=== PATIENT | female | born 1950 | race Two or more races ===

== ENCOUNTER 2016-09-16 12:50 | Emergency (ER) | payer OTHER ==
[2016-09-16 12:57] VITALS: BP 153/92; PULSE 74; TEMP 97.7; BMI 25.4
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
[2016-09-16] MEDS ORDERED: SODIUM CHLORIDE 1,000 ML IV STA (13:20)
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
[2016-09-16 14:15] LABS: BASOPHIL 0.3 % (0-2.0); MCH 28.8 pg (25.7-33.7); MCHC 33.2 g/dl (32.0-36.0); MEAN CELL VOLUME 86.8 fl (80-96); MEAN PLT VOLUME 8.9 fl (7.5-11.1); NEUTROPHILS 56.5 % (42.8-82.8); PLATELET COUNT 278 K/MM3 (134-434); RDW 13.8 % (11.6-15.6); WHITE BLOOD COUNT 9.4 K/mm3 (4.0-10.0)
[2016-09-16 14:40] LABS: ALBUMIN 3.8 g/dl (3.4-5.0); ALK PHOS 129 U/L (45-117); ANION GAP 9 (8-16); BILIRUBIN,TOTAL 0.2 mg/dL (0.2-1.0); CALCIUM 9.1 mg/dL (8.5-10.1); CO2 29 mmol/L (21-32); CREATININE 0.6 mg/dL (0.55-1.02); GLUCOSE,RANDOM 85 mg/dL (74-106); SGOT/AST 15 U/L (15-37); SGPT/ALT 18 U/L (12-78); TOT PROT 7.1 g/dl (6.4-8.2)
[2016-09-16 14:58] LABS: INR 0.98 (0.82-1.09); PROTHROMBIN TIME (PATIENT) 10.8 SEC (9.98-11.88)
[2016-09-16] MEDS ORDERED: LIDOCAINE HCL/PF 1% SDV 5ML VIAL ONE (15:55)
--- NOTE | 2016-09-16 17:12 | EKG ---
Test Reason : Blood Pressure : / mmHG Vent. Rate : 058 BPM Atrial Rate : 058 BPM P-R Int : 152 ms QRS Dur : 088 ms QT Int : 446 ms P-R-T Axes : 038 006 030 degrees QTc Int : 437 ms SINUS BRADYCARDIA OTHERWISE NORMAL ECG WHEN COMPARED WITH ECG OF 21-OCT-2014 07:07, NONSPECIFIC T WAVE ABNORMALITY NO LONGER EVIDENT IN LATERAL LEADS Confirmed by VICKIE MORENO MD ([id number]) on 09/16/2016 5:12:00 PM Referred By: Confirmed By:VICKIE MORENO MD
[2016-09-16] MEDS ORDERED: DIPHTH,PERTUSS(ACELL),TET 0.5 ML DISP.SYRIN IM ONE (17:46)
== END 2016-09-16 18:42 | disposition home or self-care (01) ==
LOC: JER 12:50
PROC: 0SSQXZZ Reposition Left Toe Phalangeal Joint, External Approach (ICD-10-PCS; principal; 2016-09-16)
DX: S93.115A Dislocation of interphalangeal joint of left lesser toe(s), initial encounter (principal); V03.10XA Pedestrian on foot injured in collision with car, pick-up truck or van in traffic accident, initial encounter; Y93.89 Activity, other specified; Y92.414 Local residential or business street as the place of occurrence of the external cause; I10 Essential (primary) hypertension; E78.00 Pure hypercholesterolemia, unspecified; E11.9 Type 2 diabetes mellitus without complications; Z79.84 Long term (current) use of oral hypoglycemic drugs
CPT/HCPCS: 36415; 73562-TC-RT; 73630-TC-LT; 80053; 85025; 85610; 90715; 93005; 93010; 99283-25

== ENCOUNTER 2020-11-30 05:02 | Day surgery (SDC) | payer OTHER ==
[2020-11-29 14:22] VITALS: BMI 48.8
[~2020-11-30 05:02] MED LIST: ACETAMINOPHEN 325 MG TABLET (FP) PO PRN; CYCLOPENTOLATE HCL 1% OPHTH SOLN 2 ML BOTTLE OP SCH; KETOROLAC TROMETHAMINE 0.5% EYE DROP 1 DROP DROPS OP SCH; OFLOXACIN 0.3% OPHTHALMIC SOLUTION 5 ML BOTTLE OP SCH; PHENYLEPHRINE 2.5% OPHTH SOLN 15 ML BOTTLE OP SCH; TROPICAMIDE 1% OPHTH SOLN 15 ML BOTTLE OP SCH
[2020-11-30] MEDS ORDERED: LIDOCAINE HCL/PF 1% SDV 5ML VIAL ONE (07:10)
[2020-11-30] MEDS ORDERED: EPINEPHrine/PF 1 MG/1 ML (1:1,000) AMPULE ONE (07:10)
[2020-11-30] MEDS ORDERED: VANCOMYCIN 500 MG VIAL (RESTRICTED TO ID ONLY) ONE (07:10)
[2020-11-30] MEDS ORDERED: POVIDONE-IODINE 5% OPHTHALMIC PREP 30 ML SOLUTION ONE (07:11)
[2020-11-30] MEDS ORDERED: BSS (NA/CA/MG/K) BALANCED SALT SOLUTION OPHTH SOLN 15 ML BOTTLE ONE (07:11)
[2020-11-30] MEDS ORDERED: TETRACAINE 0.5% OPHTH SOLN 2 ML BOTTLE ONE (07:11)
[2020-11-30] MEDS ORDERED: OFLOXACIN 0.3% OPHTHALMIC SOLUTION 5 ML BOTTLE ONE (07:33)
[2020-11-30] MEDS ORDERED: KETOROLAC TROMETHAMINE 0.5% EYE DROP 1 DROP DROPS ONE (07:34)
[2020-11-30] MEDS ORDERED: TROPICAMIDE 1% OPHTH SOLN 15 ML BOTTLE ONE (07:34)
[2020-11-30] MEDS ORDERED: CYCLOPENTOLATE HCL 1% OPHTH SOLN 2 ML BOTTLE ONE (07:34)
[2020-11-30] MEDS ORDERED: TETRACAINE 0.5% OPHTH SOLN 2 ML BOTTLE OS ONE (07:41)
[2020-11-30] MEDS ORDERED: POVIDONE-IODINE 5% OPHTHALMIC PREP 30 ML SOLUTION OS ONE ×2 (07:42→10:02)
[2020-11-30] MEDS ORDERED: BSS (NA/CA/MG/K) BALANCED SALT SOLUTION OPHTH SOLN 15 ML BOTTLE OS ONE ×2 (07:43→10:06)
[2020-11-30] MEDS ORDERED: CHONDROITIN SU A/HYALUR SOD 1 KIT IO ONE ×2 (07:43→10:10)
[2020-11-30] MEDS ORDERED: LIDOCAINE HCL 1% PRESERVATIVE FREE - 30ML VIAL IO ONE ×2 (07:43→10:05)
[2020-11-30] MEDS ORDERED: EPINEPHrine/PF 1 MG/1 ML (1:1,000) AMPULE SQ ONE ×2 (07:45→10:11)
[2020-11-30] MEDS ORDERED: CYCLOPENTOLATE HCL 1% OPHTH SOLN 2 ML BOTTLE OS ONE ×3 (07:55→08:05)
[2020-11-30] MEDS ORDERED: OFLOXACIN 0.3% OPHTHALMIC SOLUTION 5 ML BOTTLE OS ONE ×3 (07:55→08:05)
[2020-11-30] MEDS ORDERED: TROPICAMIDE 1% OPHTH SOLN 15 ML BOTTLE OS ONE ×3 (07:55→08:05)
[2020-11-30] MEDS ORDERED: PHENYLEPHRINE 2.5% OPHTH SOLN 15 ML BOTTLE OS ONE ×3 (07:55→08:05)
[2020-11-30] MEDS ORDERED: KETOROLAC TROMETHAMINE 0.5% EYE DROP 1 DROP DROPS OS ONE ×3 (07:55→08:05)
[2020-11-30] MEDS ORDERED: LIDOCAINE HCL 2% (50ML VIAL) NR ONE (09:43)
[2020-11-30] MEDS ORDERED: BUPIVACAINE HCL/PF 0.75% 10 ML VIAL NR ONE (09:44)
[2020-11-30] MEDS ORDERED: PROPOFOL 20 ML ONE (09:51)
[2020-11-30 13:11] VITALS: TEMP 97.7
[2020-11-30 13:13] VITALS: BP 143/81; PULSE 65
== END 2020-11-30 11:30 | disposition home or self-care (01) ==
LOC: JASU-SURG 05:02
PROVIDERS: ATTEND Ophthalmology
PROC: 08RK3JZ Replacement of Left Lens with Synthetic Substitute, Percutaneous Approach (ICD-10-PCS; principal; 2020-11-30 10:00)
DX: H26.9 Unspecified cataract (principal); I10 Essential (primary) hypertension; E11.9 Type 2 diabetes mellitus without complications
CPT/HCPCS: 82962

== ENCOUNTER 2020-12-14 05:21 | Day surgery (SDC) | payer OTHER ==
[2020-12-09 15:41] VITALS: BMI 29.2
[~2020-12-14 05:21] MED LIST changes: -CYCLOPENTOLATE HCL 1% OPHTH SOLN 2 ML BOTTLE OP SCH; -KETOROLAC TROMETHAMINE 0.5% EYE DROP 1 DROP DROPS OP SCH; -OFLOXACIN 0.3% OPHTHALMIC SOLUTION 5 ML BOTTLE OP SCH; -PHENYLEPHRINE 2.5% OPHTH SOLN 15 ML BOTTLE OP SCH; -TROPICAMIDE 1% OPHTH SOLN 15 ML BOTTLE OP SCH
[2020-12-14] MEDS ORDERED: TROPICAMIDE 1% OPHTH SOLN 15 ML BOTTLE ONE (06:57)
[2020-12-14] MEDS ORDERED: KETOROLAC TROMETHAMINE 0.5% EYE DROP 1 DROP DROPS ONE (06:58)
[2020-12-14] MEDS ORDERED: CYCLOPENTOLATE HCL 1% OPHTH SOLN 2 ML BOTTLE ONE (06:58)
[2020-12-14] MEDS ORDERED: OFLOXACIN 0.3% OPHTHALMIC SOLUTION 5 ML BOTTLE ONE (06:58)
[2020-12-14] MEDS ORDERED: VANCOMYCIN 500 MG VIAL (RESTRICTED TO ID ONLY) ONE (07:11)
[2020-12-14] MEDS ORDERED: EPINEPHrine/PF 1 MG/1 ML (1:1,000) AMPULE ONE (07:11)
[2020-12-14] MEDS ORDERED: BUPIVACAINE HCL/PF 0.75% 10 ML VIAL ONE (07:11)
[2020-12-14] MEDS ORDERED: LIDOCAINE HCL/PF 2% SDV 5ML VIAL ONE (07:12)
[2020-12-14] MEDS ORDERED: LIDOCAINE HCL/PF 1% SDV 5ML VIAL ONE (07:12)
[2020-12-14] MEDS ORDERED: POVIDONE-IODINE 5% OPHTHALMIC PREP 30 ML SOLUTION ONE (07:12)
[2020-12-14] MEDS ORDERED: BSS (NA/CA/MG/K) BALANCED SALT SOLUTION OPHTH SOLN 15 ML BOTTLE ONE (07:12)
[2020-12-14] MEDS ORDERED: TETRACAINE 0.5% OPHTH SOLN 2 ML BOTTLE ONE (07:12)
[2020-12-14] MEDS: OFLOXACIN 0.3% OPHTHALMIC SOLUTION 5 ML BOTTLE OP SCH ×2 (07:15→07:25)
[2020-12-14] MEDS: TROPICAMIDE 1% OPHTH SOLN 15 ML BOTTLE OP SCH ×3 (07:15→07:35)
[2020-12-14] MEDS: PHENYLEPHRINE 2.5% OPHTH SOLN 15 ML BOTTLE OP SCH ×3 (07:15→07:35)
[2020-12-14] MEDS: CYCLOPENTOLATE HCL 1% OPHTH SOLN 2 ML BOTTLE OP SCH ×3 (07:15→07:35)
[2020-12-14] MEDS: KETOROLAC TROMETHAMINE 0.5% EYE DROP 1 DROP DROPS OP SCH ×3 (07:15→07:35)
[2020-12-14] MEDS ORDERED: LIDOCAINE HCL 2% (50ML VIAL) NR ONE ×2 (07:16→08:12)
[2020-12-14] MEDS ORDERED: BUPIVACAINE HCL/PF 0.75% 10 ML VIAL NR ONE ×2 (07:21→08:12)
[2020-12-14] MEDS ORDERED: LIDOCAINE HCL 1% PRESERVATIVE FREE - 30ML VIAL IJ ONE ×2 (07:21→08:22)
[2020-12-14] MEDS ORDERED: POVIDONE-IODINE 5% OPHTHALMIC PREP 30 ML SOLUTION OD ONE ×2 (07:21→08:15)
[2020-12-14] MEDS ORDERED: BSS (NA/CA/MG/K) BALANCED SALT SOLUTION OPHTH SOLN 15 ML BOTTLE OD ONE ×2 (07:22→08:23)
[2020-12-14] MEDS ORDERED: CHONDROITIN SU A/HYALUR SOD 1 KIT IO ONE ×2 (07:22→08:23)
[2020-12-14] MEDS ORDERED: EPINEPHrine 1:1,000 1 MG/1 ML - 30ML VIAL (INJECTION) SQ ONE ×3 (07:23→08:28)
[2020-12-14] MEDS ORDERED: MIDAZOLAM HCL 2 MG/2 ML SINGLE DOSE VIAL ONE (07:28)
[2020-12-14] MEDS ORDERED: PROPOFOL 20 ML ONE ×3 (07:29)
[2020-12-14 09:02] VITALS: TEMP 97.8
[2020-12-14] MEDS ORDERED: ACETAMINOPHEN 325 MG TABLET (FP) ONE (09:32)
[2020-12-14 09:57] VITALS: BP 119/69; PULSE 64
== END 2020-12-14 10:15 | disposition home or self-care (01) ==
LOC: JASU-SURG 05:21
PROVIDERS: ATTEND Ophthalmology
PROC: 08RJ3JZ Replacement of Right Lens with Synthetic Substitute, Percutaneous Approach (ICD-10-PCS; principal; 2020-12-14 08:00)
DX: H26.9 Unspecified cataract (principal); E11.9 Type 2 diabetes mellitus without complications; I10 Essential (primary) hypertension; Z79.84 Long term (current) use of oral hypoglycemic drugs
CPT/HCPCS: 82962

== ENCOUNTER 2021-08-11 10:07 | Inpatient (IN) | payer OTHER ==
[2021-08-11] MEDS ORDERED: ASPIRIN 81 MG CHEWABLE TABLETS PO ONE (11:24)
[2021-08-11] MEDS ORDERED: ASPIRIN 325 MG TABLET ONE (11:43)
[2021-08-11 12:11] LABS: BASO % 0.2 % (0-2.0); HEMOGLOBIN 12.1 GM/dL (10.7-15.3); LYMPH % 25.7 % (8-40); MCH 29.1 pg (25.7-33.7); MCHC 33.6 g/dl (32.0-36.0); MEAN CELL VOLUME 86.4 fl (80-96); MEAN PLT VOLUME 9.2 fl (7.5-11.1); NEUT % 66.1 % (42.8-82.8); PLATELET COUNT 324 10^3/uL (134-434); RBC 4.17 M/mm3 (3.60-5.2); RDW 13.7 % (11.6-15.6); WHITE BLOOD COUNT 11.6 K/mm3 (4.0-10.0)
[2021-08-11 12:25] LABS: ACTIVATED PTT 31.8 SECONDS (25.2-36.5); CHLORIDE 108 mmol/L (98-107); INR 0.95 (0.83-1.09); PROTHROMBIN TIME (PATIENT) 10.9 SEC (9.7-13.0); SODIUM 139 mmol/L (136-145)
[2021-08-11 12:27] LABS: CALCIUM 9.7 mg/dL (8.5-10.1)
[2021-08-11 12:28] LABS: ALBUMIN 3.6 g/dl (3.4-5.0); ANION GAP 5 MMOL/L (8-16); CO2 26 mmol/L (21-32)
[2021-08-11 12:29] LABS: BLOOD UREA NITROGEN 16.9 mg/dL (7-18); GLUCOSE,RANDOM 113 mg/dL (74-106)
[2021-08-11 12:31] LABS: CREATININE 0.6 mg/dL (0.55-1.3); SGOT/AST 40 U/L (15-37); SGPT/ALT 18 U/L (13-61)
[2021-08-11 12:32] LABS: CHOLESTEROL 208 mg/dL (50-200)
[2021-08-11 12:33] LABS: TOT PROT 7.3 g/dl (6.4-8.2); TRIGLYCERIDES 161 mg/dL (0-150)
[2021-08-11 12:34] LABS: BILIRUBIN,TOTAL 0.3 mg/dL (0.2-1); LDL CHOLESTEROL (ONLY SJRH) 105 mg/dL (5-100)
[2021-08-11 12:35] LABS: ALK PHOS 115 U/L (45-117); HDL CHOLESTEROL 83 mg/dL (40-60)
[2021-08-11] MEDS ORDERED: ATORVASTATIN CA 40 MG TABLET (FP) PO ONE (13:28)
[2021-08-11] MEDS ORDERED: ATORVASTATIN CA 40 MG TABLET (FP) ONE ×2 (13:51→22:34)
[2021-08-11] MEDS: ENOXAPARIN NA (PORCINE) 40 MG/0.4 ML DISP.SYRIN SQ SCH (17:41)
[2021-08-11] MEDS ORDERED: ENOXAPARIN NA (PORCINE) 40 MG/0.4 ML DISP.SYRIN SQ ONE (17:42)
[2021-08-11] MEDS: INSULIN SLIDING SCALE (NOVOLOG) 1 VIAL SQ SCH (17:47)
[2021-08-11 17:49] LABS: URINE APPEARANCE CLEAR; URINE BILIRUBIN NEGATIVE (NEGATIVE); URINE COLOR YELLOW; URINE GLUCOSE (UA) NEGATIVE (NEGATIVE); URINE KETONE NEGATIVE (NEGATIVE); URINE LEUK ESTERASE NEGATIVE (NEGATIVE); URINE NITRITE NEGATIVE (NEGATIVE); URINE PROTEIN NEGATIVE (NEGATIVE); URINE UROBILINOGEN 0.2 mg/dL (0.2-1.0)
[2021-08-11] MEDS ORDERED: ATORVASTATIN CA 40 MG TABLET (FP) PO SCH (22:00)
[2021-08-12 01:00] VITALS: BMI 31.8
[2021-08-12] MEDS ORDERED: ACETAMINOPHEN 325 MG TABLET (FP) PO ONE (06:37)
[2021-08-12] MEDS: INSULIN SLIDING SCALE (NOVOLOG) 1 VIAL SQ SCH ×3 (06:48→16:16)
[2021-08-12 07:08] LABS: BASO % 0.3 % (0-2.0); EOS % 3.6 % (0-4.5); HEMATOCRIT 36.7 % (32.4-45.2); HEMOGLOBIN 12.5 GM/dL (10.7-15.3); LYMPH % 36.3 % (8-40); MCH 29.3 pg (25.7-33.7); MEAN PLT VOLUME 8.5 fl (7.5-11.1); MONO % 9.1 % (3.8-10.2); NEUT % 50.7 % (42.8-82.8); PLATELET COUNT 313 10^3/uL (134-434); RBC 4.26 M/mm3 (3.60-5.2); RDW 13.3 % (11.6-15.6); WHITE BLOOD COUNT 7.1 K/mm3 (4.0-10.0)
[2021-08-12 07:27] LABS: CALCIUM 9.5 mg/dL (8.5-10.1)
[2021-08-12 07:28] LABS: ALBUMIN 3.4 g/dl (3.4-5.0); BLOOD UREA NITROGEN 21.1 mg/dL (7-18)
[2021-08-12 07:31] LABS: CREATININE 0.8 mg/dL (0.55-1.3); PHOSPHOROUS 5.6 mg/dL (2.5-4.9)
[2021-08-12 07:32] LABS: TOT PROT 6.6 g/dl (6.4-8.2)
[2021-08-12 07:33] LABS: BILIRUBIN,TOTAL 0.2 mg/dL (0.2-1)
[2021-08-12] MEDS ORDERED: PANTOPRAZOLE 40 MG TABLET PO SCH (10:00)
[2021-08-12] MEDS ORDERED: ASPIRIN COATED 81 MG TABLET.EC PO SCH (10:00)
[2021-08-12] MEDS: ENOXAPARIN NA (PORCINE) 40 MG/0.4 ML DISP.SYRIN SQ SCH (10:19)
[2021-08-12] MEDS ORDERED: ACETAMINOPHEN 325 MG TABLET (FP) PO PRN (17:48)
[2021-08-12 18:40] VITALS: BP 124/60; PULSE 62; TEMP 98.8
[2021-08-13] MEDS ORDERED: FLUoxetine HCL 20 MG CAPSULE PO SCH (10:00)
== END 2021-08-12 20:00 | disposition home or self-care (01) | DRG 69 ==
LOC: JER 10:07 → JERBED 12:57 → J4W 23:45
PROVIDERS: ADMIT Internal Medicine; ATTEND Internal Medicine
DX: G45.9 Transient cerebral ischemic attack, unspecified (principal); J45.909 Unspecified asthma, uncomplicated; I10 Essential (primary) hypertension; E11.9 Type 2 diabetes mellitus without complications; R29.702 NIHSS score 2; R29.810 Facial weakness; E78.00 Pure hypercholesterolemia, unspecified; R07.89 Other chest pain; G93.89 Other specified disorders of brain
CPT/HCPCS: 36415; 70450-TC; 70551-TC; 71045-TC-FY; 80053; 80061; 81003; 82550; 82553; 82962; 83036; 83735; 84100; 84132; 84443; 84484; 85025; 85610; 85730; 86900; 93005; 93010; 93880-TC; 99291; C9803; U0003; U0005

== ENCOUNTER 2021-09-03 12:43 | Observation (INO) | payer OTHER ==
[2021-09-03 13:59] LABS: BASO % 0.5 % (0-2.0); HEMATOCRIT 36.4 % (32.4-45.2); HEMOGLOBIN 12.4 GM/dL (10.7-15.3); LYMPH % 21.5 % (8-40); MCH 29.2 pg (25.7-33.7); MCHC 34.1 g/dl (32.0-36.0); MEAN CELL VOLUME 85.6 fl (80-96); MEAN PLT VOLUME 8.7 fl (7.5-11.1); MONO % 6.6 % (3.8-10.2); NEUT % 70.4 % (42.8-82.8); PLATELET COUNT 311 10^3/uL (134-434); RBC 4.25 M/mm3 (3.60-5.2); RDW 13.3 % (11.6-15.6); WHITE BLOOD COUNT 10.6 K/mm3 (4.0-10.0)
[2021-09-03 14:20] LABS: ALBUMIN 3.9 g/dl (3.4-5.0); BLOOD UREA NITROGEN 11.8 mg/dL (7-18); CALCIUM 9.2 mg/dL (8.5-10.1)
[2021-09-03 14:23] LABS: CREATININE 0.8 mg/dL (0.55-1.3)
[2021-09-03 14:24] LABS: BILIRUBIN,TOTAL 0.3 mg/dL (0.2-1)
[2021-09-03 14:25] LABS: TOT PROT 7.4 g/dl (6.4-8.2)
[2021-09-03 14:26] LABS: INR 0.97 (0.83-1.09); PROTHROMBIN TIME (PATIENT) 11.1 SEC (9.7-13.0)
[2021-09-03 15:05] LABS: EPI CELLS 18 /uL (0-25.1); HYALINE CASTS 0 /uL (0-3.1); URINE APPEARANCE CLEAR; URINE BACTERIA 248 /uL (0-1359); URINE BILIRUBIN NEGATIVE (NEGATIVE); URINE COLOR YELLOW; URINE GLUCOSE (UA) NEGATIVE (NEGATIVE); URINE KETONE NEGATIVE (NEGATIVE); URINE LEUK ESTERASE TRACE (NEGATIVE); URINE NITRITE NEGATIVE (NEGATIVE); URINE PROTEIN NEGATIVE (NEGATIVE); URINE UROBILINOGEN 0.2 mg/dL (0.2-1.0); URINE WBC 6 /uL (0-25.8)
[2021-09-03] MEDS ORDERED: ACETAMINOPHEN 500 MG TABLET (FP) PO ONE (15:24)
[2021-09-03 15:53] LABS: URINE RBC 264 /uL (0-23.9)
[2021-09-03] MEDS ORDERED: ACETAMINOPHEN 325 MG TABLET (FP) ONE (16:00)
[2021-09-03] MEDS ORDERED: ASPIRIN 81 MG CHEWABLE TABLETS PO ONE (16:01)
[2021-09-03] MEDS ORDERED: ASPIRIN 81 MG CHEWABLE TABLETS ONE (16:09)
[2021-09-03] MEDS ORDERED: ATORVASTATIN CA 40 MG TABLET (FP) PO SCH (22:00)
[2021-09-04 00:51] VITALS: BMI 31.8
[2021-09-04] MEDS ORDERED: ASPIRIN 81 MG CHEWABLE TABLETS PO SCH (10:00)
[2021-09-04] MEDS ORDERED: LISINOPRIL 10 MG TABLET PO SCH (10:00)
[2021-09-04] MEDS ORDERED: amLODIPine BESYLATE 5 MG TABLET (FP) PO SCH (10:00)
[2021-09-04] MEDS ORDERED: PANTOPRAZOLE 40 MG TABLET PO SCH (10:00)
[2021-09-04] MEDS: INSULIN SLIDING SCALE (NOVOLOG) 1 VIAL SQ SCH ×2 (11:45→16:28)
[2021-09-04 13:07] LABS: SARS-CoV-2 NAA Not Detected (Not Detected)
[2021-09-04 16:16] VITALS: BP 144/80; PULSE 66; TEMP 98.1
== END 2021-09-04 18:34 | disposition home or self-care (01) ==
LOC: JER 12:43 → INTOOBSV 15:37 → JERBED 15:37 → UNDOADMOB 15:37 → JERBED 16:07 → J4W 20:41
PROVIDERS: ADMIT Internal Medicine; ATTEND Internal Medicine
DX: I10 Essential (primary) hypertension (principal); E11.9 Type 2 diabetes mellitus without complications; Z86.73 Personal history of transient ischemic attack (TIA), and cerebral infarction without residual deficits; K21.9 Gastro-esophageal reflux disease without esophagitis; Z91.013 Allergy to seafood
CPT/HCPCS: 36415; 70450-TC; 71045-TC-FY; 80053; 80061; 81003; 82962; 83036; 84484; 85025; 85610; 85730; 93005; 93010; 93306-TC; 97116-GP; 97161-GP; 99285-25; C9803-CS; G0378; U0003; U0005

== ENCOUNTER 2022-11-26 13:22 | Inpatient (IN) | payer OTHER ==
[2022-11-26] MEDS ORDERED: ACETAMINOPHEN 1000 MG/100 ML BAG IVPB ONE (14:32)
[2022-11-26] MEDS ORDERED: SODIUM CHLORIDE 0.9% 500 ML INFUS.BAG IV ONE (14:32)
[2022-11-26 14:46] LABS: BASO % 0.5 % (0-2.0); EOS % 0.6 % (0-4.5); HEMATOCRIT 36.6 % (32.4-45.2); HEMOGLOBIN 12.2 GM/dL (10.7-15.3); LYMPH % 13.9 % (8-40); MCH 27.8 pg (25.7-33.7); MCHC 33.2 g/dl (32.0-36.0); MEAN CELL VOLUME 83.6 fl (80-96); MEAN PLT VOLUME 8.7 fl (7.5-11.1); MONO % 7.8 % (3.8-10.2); NEUT % 77.2 % (42.8-82.8); PLATELET COUNT 400 10^3/uL (134-434); RBC 4.38 M/mm3 (3.60-5.2); WHITE BLOOD COUNT 19.9 K/mm3 (4.0-10.0)
[2022-11-26] MEDS ORDERED: ACETAMINOPHEN INJECTION 100 ML IVPB ONE (14:53)
[2022-11-26 15:07] LABS: POTASSIUM 3.5 mmol/L (3.5-5.1)
[2022-11-26 15:09] LABS: ALBUMIN 3.6 g/dl (3.4-5.0); BLOOD UREA NITROGEN 14.5 mg/dL (7-18); CALCIUM 9.5 mg/dL (8.5-10.1)
[2022-11-26 15:13] LABS: CREATININE 0.7 mg/dL (0.55-1.3)
[2022-11-26 15:14] LABS: BILIRUBIN,TOTAL 0.3 mg/dL (0.2-1); TOT PROT 7.2 g/dl (6.4-8.2)
[2022-11-26] MEDS ORDERED: ACETAMINOPHEN 325 MG TABLET (FP) PO ONE (15:21)
[2022-11-26] MEDS ORDERED: CEFTRIAXONE 1,000 MG in DEXTROSE 5%-WATER - 50 ML IVPB ONE (15:40)
[2022-11-26] MEDS ORDERED: VANCOMYCIN 1 GM in D5W (PRE-DOCKED) 1,000 MG/250 ML (RESTRICTED TO ID ONLY IVPB ONE (15:40)
[2022-11-26] MEDS ORDERED: VANCOMYCIN/WATER FOR INJ (PEG) 1,000 MG/200 ML BAG IVPB ONE (15:49)
[2022-11-26] MEDS ORDERED: CEFEPIME HCL/D5W 2 GM/50 ML BAG IVPB ONE (15:54)
[2022-11-26] MEDS ORDERED: CEFEPIME 2 GM in DEXTROSE 5%-WATER 100 ML IVPB ONE (16:30)
[2022-11-26] MEDS ORDERED: ONDANSETRON 4 MG/2 ML VIAL IVPUSH ONE (17:23)
[2022-11-26] MEDS ORDERED: morphine CARPU-JECT 4 MG/1 ML DISP.SYRIN IVPUSH ONE (17:23)
[2022-11-26] MEDS ORDERED: ONDANSETRON 4 MG/2 ML VIAL ONE (17:58)
[2022-11-26] MEDS ORDERED: morphine SULFATE 4 MG/ML VIAL ONE (17:58)
[2022-11-26] MEDS ORDERED: ACETAMINOPHEN 500 MG TABLET (FP) PO PRN (18:15)
[2022-11-27 05:25] VITALS: BMI 31.8
[2022-11-27] MEDS ORDERED: INSULIN SLIDING SCALE (NOVOLOG) 1 VIAL SQ SCH (07:00)
[2022-11-27] MEDS: INSULIN SLIDING SCALE (NOVOLOG) 1 VIAL SQ SCH ×2 (07:18→11:45)
[2022-11-27 08:47] LABS: HEMATOCRIT 35.7 % (32.4-45.2); HEMOGLOBIN 11.9 GM/dL (10.7-15.3); MCH 28.2 pg (25.7-33.7); MCHC 33.4 g/dl (32.0-36.0); MEAN CELL VOLUME 84.5 fl (80-96); MEAN PLT VOLUME 8.9 fl (7.5-11.1); PLATELET COUNT 380 10^3/uL (134-434); RBC 4.22 M/mm3 (3.60-5.2); RDW 13.1 % (11.6-15.6); WHITE BLOOD COUNT 20.4 K/mm3 (4.0-10.0)
[2022-11-27 09:05] LABS: POTASSIUM 3.9 mmol/L (3.5-5.1)
[2022-11-27 09:08] LABS: CALCIUM 8.9 mg/dL (8.5-10.1)
[2022-11-27 09:09] LABS: BLOOD UREA NITROGEN 13.5 mg/dL (7-18)
[2022-11-27 09:12] LABS: CREATININE 0.7 mg/dL (0.55-1.3)
[2022-11-27 09:34] LABS: ANISOCYTOSIS 0; HELMET CELLS 0; HOWELL-JOLLY BODIES 0; MACROCYTOSIS 0; OVALOCYTE 0; ROULEAU 0; SICKELED CELLS 0; TARGET CELLS 0; TEAR DROP CELLS 0; TOXIC GRANULATION 0
[2022-11-27] MEDS ORDERED: SERTRALINE HCL 50 MG TABLET (FP) PO SCH (10:00)
[2022-11-27] MEDS ORDERED: CEFTRIAXONE 1 GM in DEXTROSE 5%-WATER - 50 ML IVPB SCH (10:00)
[2022-11-27] MEDS ORDERED: amLODIPine BESYLATE 5 MG TABLET (FP) PO SCH (10:00)
[2022-11-27] MEDS ORDERED: ERTAPENEM SODIUM 1 GM in SODIUM CHLORIDE 50 ML IVPB SCH (10:00)
[2022-11-27] MEDS ORDERED: ONDANSETRON 4 MG/2 ML VIAL IVPUSH PRN ×3 (15:08→17:25)
[2022-11-27] MEDS ORDERED: oxyCODONE HCL 5 MG TABLET PO PRN ×4 (15:08→17:25)
[2022-11-27] MEDS ORDERED: BUPIVACAINE HCL/PF 0.25% (2.5MG/ML) 10 ML VIAL ONE (15:14)
[2022-11-27] MEDS ORDERED: LACTATED RINGERS SOLUTION 1,000 ML IV SCH ×4 (15:15→17:25)
[2022-11-27] MEDS ORDERED: SEVOFLURANE 250 ML BTL ONE (15:20)
[2022-11-27] MEDS ORDERED: ONDANSETRON 4 MG/2 ML VIAL ONE (15:20)
[2022-11-27] MEDS ORDERED: PROPOFOL 20 ML ONE (15:20)
[2022-11-27] MEDS ORDERED: LIDOCAINE HCL/PF 2% SDV 5ML VIAL ONE (15:20)
[2022-11-27] MEDS ORDERED: MIDAZOLAM HCL 2 MG/2 ML SINGLE DOSE VIAL ONE (16:08)
[2022-11-27] MEDS ORDERED: PIPERACILLIN/TAZOBACTAM 3.375 GM VIAL IVPB ONE (17:30)
[2022-11-27] MEDS ORDERED: PIPERACILLIN/TAZOB 3.375 GM 3.375 GM in DEXTROSE 5%-WATER - 50 ML IVPB SCH (18:00)
[2022-11-27] MEDS: PIPERACILLIN/TAZOB 3.375 GM 3.375 GM in DEXTROSE 5%-WATER - 50 ML IVPB SCH (18:56)
[2022-11-27] MEDS: HEPARIN NA (PORCINE) 5,000 UNITS/ML 1ML VIAL SQ SCH (21:10)
[2022-11-27] MEDS ORDERED: HEPARIN NA (PORCINE) 5,000 UNITS/ML 1ML VIAL SQ SCH (22:00)
[2022-11-28] MEDS: PIPERACILLIN/TAZOB 3.375 GM 3.375 GM in DEXTROSE 5%-WATER - 50 ML IVPB SCH ×3 (02:20→19:06)
[2022-11-28] MEDS: INSULIN SLIDING SCALE (NOVOLOG) 1 VIAL SQ SCH ×3 (06:10→16:32)
[2022-11-28 09:08] LABS: HEMATOCRIT 34.2 % (32.4-45.2); HEMOGLOBIN 11.6 GM/dL (10.7-15.3); MCH 28.4 pg (25.7-33.7); MCHC 33.9 g/dl (32.0-36.0); MEAN CELL VOLUME 83.6 fl (80-96); MEAN PLT VOLUME 8.6 fl (7.5-11.1); PLATELET COUNT 357 10^3/uL (134-434); RBC 4.09 M/mm3 (3.60-5.2); RDW 13.1 % (11.6-15.6)
[2022-11-28] MEDS: SERTRALINE HCL 50 MG TABLET (FP) PO SCH (09:26)
[2022-11-28] MEDS: oxyCODONE HCL 5 MG TABLET PO PRN ×2 (09:26→21:19)
[2022-11-28] MEDS: HEPARIN NA (PORCINE) 5,000 UNITS/ML 1ML VIAL SQ SCH ×2 (09:27→21:18)
[2022-11-28 09:28] LABS: POTASSIUM 3.8 mmol/L (3.5-5.1)
[2022-11-28 09:30] LABS: BLOOD UREA NITROGEN 13.2 mg/dL (7-18); CALCIUM 8.9 mg/dL (8.5-10.1)
[2022-11-28 09:34] LABS: CREATININE 0.7 mg/dL (0.55-1.3)
[2022-11-28] MEDS ORDERED: amLODIPine BESYLATE 5 MG TABLET (FP) PO SCH (10:00)
[2022-11-29] MEDS: PIPERACILLIN/TAZOB 3.375 GM 3.375 GM in DEXTROSE 5%-WATER - 50 ML IVPB SCH ×3 (01:07→18:11)
[2022-11-29] MEDS: INSULIN SLIDING SCALE (NOVOLOG) 1 VIAL SQ SCH ×3 (06:01→17:31)
[2022-11-29 08:35] LABS: HEMATOCRIT 33.5 % (32.4-45.2); HEMOGLOBIN 11.1 GM/dL (10.7-15.3); MCH 28.3 pg (25.7-33.7); MEAN CELL VOLUME 85.6 fl (80-96); MEAN PLT VOLUME 9.1 fl (7.5-11.1); PLATELET COUNT 369 10^3/uL (134-434); RBC 3.91 M/mm3 (3.60-5.2); RDW 12.9 % (11.6-15.6); WHITE BLOOD COUNT 12.6 K/mm3 (4.0-10.0)
[2022-11-29] MEDS: POLYETHYLENE GLYCOL (HEALTHYLAX) 3350 17 GM PACKET PO SCH ×3 (08:41→21:15)
[2022-11-29] MEDS: SERTRALINE HCL 50 MG TABLET (FP) PO SCH (11:00)
[2022-11-29] MEDS: ACETAMINOPHEN 500 MG TABLET (FP) PO PRN ×2 (11:00→21:15)
[2022-11-29] MEDS: HEPARIN NA (PORCINE) 5,000 UNITS/ML 1ML VIAL SQ SCH ×2 (11:00→21:16)
[2022-11-29] MEDS ORDERED: INSULIN (LEVEMIR) 100 UNITS/ML UNITS SQ ONE (11:08)
[2022-11-29] MEDS ORDERED: SENNOSIDES 8.8 MG/5 ML SYRUP PO SCH (22:00)
[2022-11-30] MEDS: PIPERACILLIN/TAZOB 3.375 GM 3.375 GM in DEXTROSE 5%-WATER - 50 ML IVPB SCH ×2 (00:59→10:00)
[2022-11-30] MEDS: ACETAMINOPHEN 500 MG TABLET (FP) PO PRN ×2 (01:06→05:46)
[2022-11-30] MEDS: POLYETHYLENE GLYCOL (HEALTHYLAX) 3350 17 GM PACKET PO SCH ×2 (05:46→14:00)
[2022-11-30] MEDS: INSULIN SLIDING SCALE (NOVOLOG) 1 VIAL SQ SCH ×2 (06:06→11:04)
[2022-11-30 07:56] LABS: HEMATOCRIT 35.4 % (32.4-45.2); HEMOGLOBIN 11.8 GM/dL (10.7-15.3); MCH 28.2 pg (25.7-33.7); MCHC 33.4 g/dl (32.0-36.0); MEAN CELL VOLUME 84.3 fl (80-96); MEAN PLT VOLUME 8.5 fl (7.5-11.1); PLATELET COUNT 411 10^3/uL (134-434); WHITE BLOOD COUNT 11.4 K/mm3 (4.0-10.0)
[2022-11-30 08:07] LABS: POTASSIUM 4.5 mmol/L (3.5-5.1)
[2022-11-30 08:10] LABS: BLOOD UREA NITROGEN 15.9 mg/dL (7-18); CALCIUM 9.4 mg/dL (8.5-10.1)
[2022-11-30 08:14] LABS: CREATININE 0.7 mg/dL (0.55-1.3)
[2022-11-30] MEDS: HEPARIN NA (PORCINE) 5,000 UNITS/ML 1ML VIAL SQ SCH (09:49)
[2022-11-30] MEDS: SERTRALINE HCL 50 MG TABLET (FP) PO SCH (09:49)
[2022-11-30 14:41] VITALS: BP 129/75; PULSE 63; RESP 18; TEMP 98.2
== END 2022-11-30 18:04 | disposition home or self-care (01) | DRG 346 ==
LOC: JER 13:22 → JERBED 16:05 → J6S 20:03
PROVIDERS: ADMIT Internal Medicine; ATTEND Internal Medicine
PROC: 0D9P7ZZ Drainage of Rectum, Via Natural or Artificial Opening (ICD-10-PCS; principal; 2022-11-26)
DX: K61.1 Rectal abscess (principal); I10 Essential (primary) hypertension; E11.9 Type 2 diabetes mellitus without complications; E78.5 Hyperlipidemia, unspecified; D72.829 Elevated white blood cell count, unspecified; K64.3 Fourth degree hemorrhoids
CPT/HCPCS: 36415; 71045-TC-FY; 74177-TC; 80048; 80053; 80061; 82962; 83036; 85025; 85027; 86850; 86900; 86901; 87070; 87076; 87077; 87186; 87205; 93005; 93010; 94760; 99285-25; J1644; Q9967

== ENCOUNTER 2024-03-11 18:15 | Inpatient (IN) | payer OTHER ==
[2024-03-11 19:48] LABS: BASO % 0.9 % (0-2.0); EOS % 1.3 % (0-4.5); HEMATOCRIT 40.7 % (32.4-45.2); HEMOGLOBIN 13.5 GM/dL (10.7-15.3); LYMPH % 30.2 % (8-40); MCH 28.8 pg (25.7-33.7); MCHC 33.1 g/dl (32.0-36.0); MEAN CELL VOLUME 87.2 fl (80-96); MEAN PLT VOLUME 8.2 fl (7.5-11.1); MONO % 7.6 % (3.8-10.2); PLATELET COUNT 463 10^3/uL (134-434); RBC 4.67 M/mm3 (3.60-5.2); RDW 13.5 % (11.6-15.6)
[2024-03-11 19:56] LABS: INR 0.89 (0.83-1.09); PROTHROMBIN TIME (PATIENT) 10.3 SEC (9.7-13.0)
[2024-03-11 19:57] LABS: PH,URINE 6.5 (5.0-8.0); URINE APPEARANCE CLEAR; URINE BILIRUBIN NEGATIVE (NEGATIVE); URINE COLOR YELLOW; URINE GLUCOSE (UA) NEGATIVE (NEGATIVE); URINE KETONE TRACE (NEGATIVE); URINE LEUK ESTERASE NEGATIVE (NEGATIVE); URINE NITRITE NEGATIVE (NEGATIVE); URINE PROTEIN NEGATIVE (NEGATIVE)
[2024-03-11 19:59] LABS: ACTIVATED PTT 31.2 SECONDS (25.2-36.5)
[2024-03-11] MEDS ORDERED: PIPERACILLIN/TAZOB 3.375 GM 3.375 GM/50 ML BAG IVPB ONE (19:59)
[2024-03-11] MEDS: PIPERACILLIN/TAZOB 3.375 GM 3.375 GM in DEXTROSE 5%-WATER - 50 ML IVPB ONE (20:04)
[2024-03-11 20:17] LABS: CHLORIDE 105 mmol/L (98-107); POTASSIUM 4.2 mmol/L (3.5-5.1); SODIUM 139 mmol/L (136-145)
[2024-03-11 20:21] LABS: ALBUMIN 3.7 g/dl (3.4-5.0); ANION GAP 5 mmol/L (4-13); BLOOD UREA NITROGEN 9.9 mg/dL (7-18); CALCIUM 9.6 mg/dL (8.5-10.1); CO2 29 mmol/L (21-32)
[2024-03-11 20:22] LABS: GLUCOSE,RANDOM 106 mg/dL (74-106)
[2024-03-11 20:23] LABS: SGPT/ALT 15 U/L (13-61)
[2024-03-11 20:25] LABS: CREATININE 0.7 mg/dL (0.55-1.3); SGOT/AST 13 U/L (15-37)
[2024-03-11 20:26] LABS: BILIRUBIN,TOTAL 0.4 mg/dL (0.2-1); TOT PROT 7.7 g/dl (6.4-8.2)
[2024-03-11 20:27] LABS: ALK PHOS 179 U/L (45-117)
[2024-03-11 23:17] LABS: ERYTHROCYTE SEDIMENTATION RATE 38 mm/hr (0-30)
[2024-03-11] MEDS: INSULIN ASPART SLIDING SCALE (NOVOLOG) 1 VIAL SQ SCH (23:46)
[2024-03-12] MEDS ORDERED: ACETAMINOPHEN 500 MG TABLET (FP) ONE ×2 (00:16→12:55)
[2024-03-12] MEDS: ACETAMINOPHEN 500 MG TABLET (FP) PO PRN (00:29)
[2024-03-12] MEDS ORDERED: DEXTROSE 5%-WATER 100 ML IVPB ONE (03:26)
[2024-03-12] MEDS ORDERED: PIPERACILLIN/TAZOB 3.375 GM 3.375 GM/50 ML BAG IVPB ONE ×3 (03:26→17:38)
[2024-03-12] MEDS: PIPERACILLIN/TAZOB 3.375 GM 3.375 GM in DEXTROSE 5%-WATER - 50 ML IVPB SCH ×3 (03:37→17:44)
[2024-03-12] MEDS ORDERED: POLYETHYLENE GLYCOL (HEALTHYLAX) 3350 17 GM PACKET ONE (06:35)
[2024-03-12] MEDS ORDERED: DOCUSATE SODIUM 100 MG CAPSULE (FP) PO ONE (06:36)
[2024-03-12] MEDS: DOCUSATE SODIUM 100 MG CAPSULE (FP) PO SCH (06:40)
[2024-03-12] MEDS: POLYETHYLENE GLYCOL (HEALTHYLAX) 3350 17 GM PACKET PO SCH (06:41)
[2024-03-12 07:56] LABS: HEMATOCRIT 38.2 % (32.4-45.2); HEMOGLOBIN 12.5 GM/dL (10.7-15.3); MCHC 32.6 g/dl (32.0-36.0); MEAN CELL VOLUME 88.9 fl (80-96); PLATELET COUNT 398 10^3/uL (134-434); RBC 4.29 M/mm3 (3.60-5.2); RDW 13.5 % (11.6-15.6)
[2024-03-12 08:11] LABS: POTASSIUM 4.3 mmol/L (3.5-5.1)
[2024-03-12 08:17] LABS: CALCIUM 9.2 mg/dL (8.5-10.1)
[2024-03-12 08:18] LABS: ALBUMIN 3.3 g/dl (3.4-5.0); MAGNESIUM 2.3 mg/dL (1.8-2.4)
[2024-03-12 08:21] LABS: CREATININE 0.8 mg/dL (0.55-1.3)
[2024-03-12 08:23] LABS: BILIRUBIN,TOTAL 0.4 mg/dL (0.2-1); TOT PROT 6.6 g/dl (6.4-8.2)
[2024-03-12] MEDS: amLODIPine BESYLATE 5 MG TABLET (FP) PO SCH (09:23)
[2024-03-12] MEDS: SERTRALINE HCL 50 MG TABLET (FP) PO SCH (09:23)
[2024-03-12 09:25] LABS: LACTIC ACID 2.2 mmol/L (0.4-2.0)
[2024-03-12] MEDS ORDERED: ENOXAPARIN NA (PORCINE) 40 MG/0.4 ML DISP.SYRIN SQ SCH (10:00)
[2024-03-12] MEDS ORDERED: ACETAMINOPHEN/CAFFEINE/BUTALBITAL 1 TAB ONE (12:51)
[2024-03-12] MEDS ORDERED: hydrOXYzine PAMOATE 50 MG CAPSULE (FP) ONE (18:14)
[2024-03-12 20:29] VITALS: BMI 29.8
[2024-03-12] MEDS: traMADol HCL 50 MG TABLET PO SCH (21:22)
[2024-03-12] MEDS: LACTOBACILLUS ACIDOPHILUS 1 TABLET PO SCH (21:22)
[2024-03-13 08:02] LABS: BASO % 0.4 % (0-2.0); EOS % 1.6 % (0-4.5); HEMATOCRIT 36.2 % (32.4-45.2); HEMOGLOBIN 12.2 GM/dL (10.7-15.3); LYMPH % 35.7 % (8-40); MCH 29.4 pg (25.7-33.7); MCHC 33.6 g/dl (32.0-36.0); MEAN CELL VOLUME 87.7 fl (80-96); MEAN PLT VOLUME 8.1 fl (7.5-11.1); MONO % 8.3 % (3.8-10.2); PLATELET COUNT 370 10^3/uL (134-434); RBC 4.13 M/mm3 (3.60-5.2); WHITE BLOOD COUNT 8.9 K/mm3 (4.0-10.0)
[2024-03-13 08:12] LABS: POTASSIUM 4.3 mmol/L (3.5-5.1)
[2024-03-13 08:15] LABS: BLOOD UREA NITROGEN 18.9 mg/dL (7-18)
[2024-03-13 08:19] LABS: CREATININE 0.8 mg/dL (0.55-1.3)
[2024-03-13] MEDS ORDERED: INSULIN ASPART SLIDING SCALE (NOVOLOG) 1 VIAL SQ ONE (12:19)
[2024-03-13] MEDS ORDERED: LORazepam 2 MG/ML SDV VIAL IVPUSH PRN (15:45)
[2024-03-13] MEDS: CEFTRIAXONE 1 GM in DEXTROSE 5%-WATER - 50 ML IVPB SCH (17:07)
[2024-03-14 09:45] LABS: BASO % 0.6 % (0-2.0); EOS % 1.4 % (0-4.5); HEMATOCRIT 37.3 % (32.4-45.2); HEMOGLOBIN 12.2 GM/dL (10.7-15.3); LYMPH % 28.6 % (8-40); MCHC 32.8 g/dl (32.0-36.0); MEAN CELL VOLUME 88.4 fl (80-96); MEAN PLT VOLUME 8.1 fl (7.5-11.1); MONO % 6.3 % (3.8-10.2); NEUT % 63.1 % (42.8-82.8); PLATELET COUNT 358 10^3/uL (134-434); RBC 4.22 M/mm3 (3.60-5.2); RDW 13.1 % (11.6-15.6); WHITE BLOOD COUNT 9.3 K/mm3 (4.0-10.0)
[2024-03-14 12:15] LABS: POTASSIUM 4.2 mmol/L (3.5-5.1)
[2024-03-14 12:25] LABS: CALCIUM 8.9 mg/dL (8.5-10.1)
[2024-03-14 12:29] LABS: CREATININE 0.8 mg/dL (0.55-1.3)
[2024-03-14] MEDS: LORazepam 2 MG/ML SDV VIAL IVPUSH PRN (13:51)
[2024-03-14] MEDS: hydrOXYzine PAMOATE 25 MG CAPSULE (FP) PO PRN (16:50)
[2024-03-14] MEDS: ATORVASTATIN CA 40 MG TABLET (FP) PO SCH (21:34)
[2024-03-15 07:18] LABS: BASO % 0.4 % (0-2.0); EOS % 2.5 % (0-4.5); HEMATOCRIT 36.8 % (32.4-45.2); HEMOGLOBIN 12.1 GM/dL (10.7-15.3); LYMPH % 43.2 % (8-40); MCHC 32.7 g/dl (32.0-36.0); MEAN CELL VOLUME 88.4 fl (80-96); MEAN PLT VOLUME 8.2 fl (7.5-11.1); MONO % 8.4 % (3.8-10.2); NEUT % 45.5 % (42.8-82.8); PLATELET COUNT 366 10^3/uL (134-434); RBC 4.17 M/mm3 (3.60-5.2); RDW 13.1 % (11.6-15.6)
[2024-03-15 07:35] LABS: POTASSIUM 4.4 mmol/L (3.5-5.1)
[2024-03-15 07:40] LABS: CALCIUM 9.1 mg/dL (8.5-10.1)
[2024-03-15 07:41] LABS: BLOOD UREA NITROGEN 21.7 mg/dL (7-18)
[2024-03-15 07:44] LABS: CREATININE 0.7 mg/dL (0.55-1.3)
[2024-03-15] MEDS ORDERED: cefTRIAXone SODIUM 1 GM VIAL ONE (09:26)
[2024-03-16 08:03] LABS: BASO % 0.3 % (0-2.0); EOS % 2.6 % (0-4.5); HEMATOCRIT 37.2 % (32.4-45.2); HEMOGLOBIN 12.4 GM/dL (10.7-15.3); LYMPH % 34.3 % (8-40); MCH 28.9 pg (25.7-33.7); MCHC 33.3 g/dl (32.0-36.0); MEAN CELL VOLUME 86.8 fl (80-96); MEAN PLT VOLUME 8.3 fl (7.5-11.1); MONO % 8.3 % (3.8-10.2); NEUT % 54.5 % (42.8-82.8); PLATELET COUNT 342 10^3/uL (134-434); RBC 4.28 M/mm3 (3.60-5.2); RDW 13.3 % (11.6-15.6); WHITE BLOOD COUNT 9.5 K/mm3 (4.0-10.0)
[2024-03-16 08:17] LABS: POTASSIUM 4.5 mmol/L (3.5-5.1)
[2024-03-16 08:23] LABS: BLOOD UREA NITROGEN 19.3 mg/dL (7-18); CALCIUM 9.1 mg/dL (8.5-10.1)
[2024-03-16 08:27] LABS: CREATININE 0.8 mg/dL (0.55-1.3)
[2024-03-16] MEDS: MELATONIN 5 MG TABLETS PO PRN (22:06)
[2024-03-17 08:31] LABS: BASO % 0.7 % (0-2.0); HEMATOCRIT 40.3 % (32.4-45.2); HEMOGLOBIN 12.8 GM/dL (10.7-15.3); LYMPH % 31.7 % (8-40); MCH 28.3 pg (25.7-33.7); MCHC 31.7 g/dl (32.0-36.0); MEAN CELL VOLUME 89.3 fl (80-96); MEAN PLT VOLUME 9.1 fl (7.5-11.1); NEUT % 57.6 % (42.8-82.8); PLATELET COUNT 292 10^3/uL (134-434); RBC 4.52 M/mm3 (3.60-5.2); RDW 13.2 % (11.6-15.6); WHITE BLOOD COUNT 8.8 K/mm3 (4.0-10.0)
[2024-03-17 08:50] LABS: POTASSIUM 4.2 mmol/L (3.5-5.1)
[2024-03-17 08:58] LABS: CALCIUM 9.8 mg/dL (8.5-10.1)
[2024-03-17 09:01] LABS: CREATININE 0.7 mg/dL (0.55-1.3)
[2024-03-17] MEDS ORDERED: BUPIVACAINE HCL/PF 0.25% (2.5MG/ML) 10 ML VIAL ONE (09:46)
[2024-03-17] MEDS ORDERED: BACITRACIN ZINC 15 GM TUBE TOPICAL OINTMENT ONE (09:46)
[2024-03-17] MEDS ORDERED: oxyCODONE HCL 5 MG TABLET PO PRN (10:42)
[2024-03-17] MEDS ORDERED: ONDANSETRON 4 MG/2 ML VIAL IVPUSH PRN ×2 (10:42→12:52)
[2024-03-17] MEDS ORDERED: LACTATED RINGERS SOLUTION 1,000 ML IV SCH ×2 (10:45→12:52)
[2024-03-17] MEDS ORDERED: SEVOFLURANE 250 ML BTL ONE (10:53)
[2024-03-17] MEDS ORDERED: DEXAMETHASONE SOD PHOSPHATE 4 MG/1 ML VIAL ONE (10:53)
[2024-03-17] MEDS ORDERED: ONDANSETRON 4 MG/2 ML VIAL ONE (10:53)
[2024-03-17] MEDS ORDERED: MIDAZOLAM HCL 2 MG/2 ML SINGLE DOSE VIAL ONE (10:53)
[2024-03-17] MEDS ORDERED: LIDOCAINE HCL/PF 2% SDV 5ML VIAL ONE (10:53)
[2024-03-17] MEDS ORDERED: PROPOFOL 20 ML ONE (11:12)
[2024-03-17] MEDS ORDERED: KETOROLAC TROMETHAMINE 30 MG/1 ML VIAL ONE (11:46)
[2024-03-17] MEDS: HYDROGEN PEROXIDE 473 ML PO ONE (12:00)
[2024-03-17] MEDS ORDERED: MELATONIN 5 MG TABLETS PO PRN (12:52)
[2024-03-17] MEDS ORDERED: ACETAMINOPHEN 500 MG TABLET (FP) PO PRN (12:52)
[2024-03-17] MEDS ORDERED: hydrOXYzine PAMOATE 25 MG CAPSULE (FP) PO PRN (12:52)
[2024-03-17] MEDS: POLYETHYLENE GLYCOL (HEALTHYLAX) 3350 17 GM PACKET PO SCH (16:45)
[2024-03-17] MEDS: DOCUSATE SODIUM 100 MG CAPSULE (FP) PO SCH (16:45)
[2024-03-17] MEDS: INSULIN ASPART SLIDING SCALE (NOVOLOG) 1 VIAL SQ SCH (17:26)
[2024-03-17] MEDS: oxyCODONE HCL 5 MG TABLET PO PRN (19:03)
[2024-03-17] MEDS: LACTOBACILLUS ACIDOPHILUS 1 TABLET PO SCH (21:52)
[2024-03-17] MEDS: traMADol HCL 50 MG TABLET PO SCH (21:53)
[2024-03-17] MEDS: ATORVASTATIN CA 40 MG TABLET (FP) PO SCH (21:53)
[2024-03-18] MEDS: amLODIPine BESYLATE 5 MG TABLET (FP) PO SCH (09:53)
[2024-03-18] MEDS: CEFTRIAXONE 1 GM in DEXTROSE 5%-WATER - 50 ML IVPB SCH (09:54)
[2024-03-18] MEDS: SERTRALINE HCL 50 MG TABLET (FP) PO SCH (09:54)
[2024-03-18 13:44] VITALS: RESP 20; TEMP 98.6
[2024-03-18 14:11] VITALS: BP 97/65; PULSE 62
== END 2024-03-18 17:38 | disposition home or self-care (01) | DRG 348 ==
LOC: JERFT 18:15 → JER 18:15 → JERBED 22:07 → J7W 03-12 19:24
PROVIDERS: ADMIT Internal Medicine; ATTEND Internal Medicine
PROC: 0DJD8ZZ Inspection of Lower Intestinal Tract, Via Natural or Artificial Opening Endoscopic (ICD-10-PCS; 2024-03-17)
PROC: 0D9 Gastrointestinal System, Drainage (ICD-10-PCS; principal; 2024-03-17 14:15)
DX: K60.30 Anal fistula, unspecified (principal); L03.317 Cellulitis of buttock; I10 Essential (primary) hypertension; E78.5 Hyperlipidemia, unspecified; E11.9 Type 2 diabetes mellitus without complications; Z79.84 Long term (current) use of oral hypoglycemic drugs; K59.00 Constipation, unspecified
CPT/HCPCS: 36415; 72193-TC; 72196-TC; 74177-TC; 80048; 80053; 80061; 81003; 82962; 83605; 83690; 83735; 84100; 85025; 85027; 85610; 85651; 85730; 86140; 86850; 86900; 86901; 87040; 87635; 93005; 93010; 94760; 99285-25; Q9967

== ENCOUNTER 2024-04-09 01:54 | Emergency (ER) | payer OTHER ==
[2024-04-09 02:15] VITALS: BP 154/83; PULSE 92; RESP 17; TEMP 98.1; BMI 31.2
[2024-04-09] MEDS ORDERED: ACETAMINOPHEN 325 MG TABLET (FP) ONE (02:52)
[2024-04-09] MEDS: ACETAMINOPHEN 325 MG TABLET (FP) PO ONE (03:19)
[2024-04-09 03:28] LABS: BASO % 0.5 % (0-2.0); EOS % 0.1 % (0-4.5); HEMATOCRIT 37.9 % (32.4-45.2); HEMOGLOBIN 12.6 GM/dL (10.7-15.3); LYMPH % 7.9 % (8-40); MCH 28.5 pg (25.7-33.7); MCHC 33.2 g/dl (32.0-36.0); MEAN CELL VOLUME 85.7 fl (80-96); MEAN PLT VOLUME 8.1 fl (7.5-11.1); MONO % 7.8 % (3.8-10.2); NEUT % 83.7 % (42.8-82.8); PLATELET COUNT 365 10^3/uL (134-434); RBC 4.43 M/mm3 (3.60-5.2); RDW 13.5 % (11.6-15.6); WHITE BLOOD COUNT 15.2 K/mm3 (4.0-10.0)
[2024-04-09 03:44] LABS: POTASSIUM 3.8 mmol/L (3.5-5.1)
[2024-04-09 03:46] LABS: ALBUMIN 3.7 g/dl (3.4-5.0); CALCIUM 9.4 mg/dL (8.5-10.1)
[2024-04-09 03:47] LABS: BLOOD UREA NITROGEN 15.3 mg/dL (7-18)
[2024-04-09 03:50] LABS: CREATININE 0.9 mg/dL (0.55-1.3)
[2024-04-09 03:51] LABS: BILIRUBIN,TOTAL 0.2 mg/dL (0.2-1); TOT PROT 7.1 g/dl (6.4-8.2)
== END 2024-04-09 06:49 | disposition home or self-care (01) ==
LOC: JER 01:54
DX: R07.2 Precordial pain (principal); U07.1 COVID-19; R06.02 Shortness of breath; R05.9 Cough, unspecified
CPT/HCPCS: 0241U-QW; 36415; 71045-TC-FY; 80053; 84484; 85025; 93005; 93010; 99285-25

== ENCOUNTER 2024-05-19 04:20 | Day surgery (SDC) | payer OTHER ==
[2024-05-19] MEDS ORDERED: BUPIVACAINE HCL/PF 0.25% (2.5MG/ML) 10 ML VIAL ONE (07:13)
[2024-05-19] MEDS ORDERED: BACITRACIN ZINC 15 GM TUBE TOPICAL OINTMENT ONE ×2 (07:14→13:56)
[2024-05-19] MEDS ORDERED: BUPIVACAINE HCL/PF 0.5% (5MG/ML) 10 ML VIAL ONE (07:55)
[2024-05-19] MEDS ORDERED: PROPOFOL 40 ML ONE (07:56)
[2024-05-19] MEDS ORDERED: MIDAZOLAM HCL 2 MG/2 ML SINGLE DOSE VIAL ONE (07:57)
[2024-05-19] MEDS ORDERED: SUCCINYLCHOLINE CHLORIDE 200 MG/10 ML SYRINGE ONE (08:02)
[2024-05-19] MEDS ORDERED: CEFOXITIN SODIUM/DEXTROSE,ISO 2 GM/50 ML BAG ONE (08:18)
[2024-05-19] MEDS: cefOXitin SODIUM 2 GM VIAL (RESTRICTED TO ID) IVPB ONE (08:29)
[2024-05-19] MEDS ORDERED: HEPARIN NA (PORCINE) 5,000 UNITS/ML 1ML VIAL ONE (08:42)
[2024-05-19] MEDS ORDERED: ePHEDrine SULFATE 50 MG/1 ML AMPULE ONE (08:44)
[2024-05-19] MEDS ORDERED: ONDANSETRON 4 MG/2 ML VIAL IVPUSH PRN (09:27)
[2024-05-19] MEDS: LACTATED RINGERS SOLUTION 1,000 ML IV SCH (09:30)
[2024-05-19 12:17] VITALS: RESP 18
[2024-05-19 15:06] VITALS: BP 125/69; PULSE 68; TEMP 97.8
== END 2024-05-19 14:55 | disposition home or self-care (01) ==
LOC: JASU-SURG 04:20
PROVIDERS: ATTEND Surgery
PROC: 0JBB0ZZ Excision of Perineum Subcutaneous Tissue and Fascia, Open Approach (ICD-10-PCS; principal; 2024-05-19 08:00)
DX: K60.329 Anal fistula, complex, unspecified (principal)
CPT/HCPCS: 82962; 88304-TC; 94760; J1644

== ENCOUNTER 2024-08-04 06:36 | Day surgery (SDC) | payer OTHER ==
[2024-07-31 14:29] VITALS: BMI 29.2
[2024-08-04] MEDS ORDERED: BUPIVACAINE HCL/PF 0.25% (2.5MG/ML) 10 ML VIAL ONE ×2 (07:35→08:57)
[2024-08-04] MEDS ORDERED: PROPOFOL 40 ML ONE (07:51)
[2024-08-04] MEDS ORDERED: MIDAZOLAM HCL 2 MG/2 ML SINGLE DOSE VIAL ONE (07:51)
[2024-08-04] MEDS ORDERED: SUCCINYLCHOLINE CHLORIDE 200 MG/10 ML SYRINGE ONE (07:51)
[2024-08-04] MEDS ORDERED: BUPIVACAINE HCL/PF 0.5% (5MG/ML) 10 ML VIAL ONE (07:58)
[2024-08-04] MEDS ORDERED: cefOXitin SODIUM 2 GM VIAL (RESTRICTED TO ID) IVPB ONE (08:08)
[2024-08-04] MEDS: cefOXitin SODIUM 2 GM VIAL (RESTRICTED TO ID) IVPB ONE (08:11)
[2024-08-04] MEDS: BUPIVACAINE HCL/PF 0.25% (2.5MG/ML) 10 ML VIAL IJ ONE (09:12)
[2024-08-04] MEDS ORDERED: ONDANSETRON 4 MG/2 ML VIAL IVPUSH PRN (11:15)
[2024-08-04] MEDS ORDERED: LACTATED RINGERS SOLUTION 1,000 ML IV SCH (11:15)
[2024-08-04 12:31] VITALS: RESP 20; TEMP 97.5
[2024-08-04 13:32] VITALS: BP 114/70; PULSE 62
== END 2024-08-04 13:20 | disposition home or self-care (01) ==
LOC: JASU-SURG 06:36
PROVIDERS: ATTEND Surgery
PROC: 0D8R3ZZ Division of Anal Sphincter, Percutaneous Approach (ICD-10-PCS; principal; 2024-08-04 08:00)
DX: K60.329 Anal fistula, complex, unspecified (principal)
CPT/HCPCS: 82962; 86850; 86900; 86901; 88305-TC; 94760

== ENCOUNTER 2024-08-18 20:35 | Inpatient (IN) | payer OTHER ==
[2024-08-18] MEDS ORDERED: ACETAMINOPHEN INJECTION 100 ML ONE (22:29)
[2024-08-18] MEDS: ACETAMINOPHEN 1000 MG/100 ML BAG IVPB ONE (22:45)
[2024-08-18 22:53] LABS: BASO % 0.3 % (0-2.0); EOS % 0.9 % (0-4.5); HEMATOCRIT 39.1 % (32.4-45.2); HEMOGLOBIN 12.9 GM/dL (10.7-15.3); LYMPH % 41.1 % (8-40); MCH 28.4 pg (25.7-33.7); MCHC 32.8 g/dl (32.0-36.0); MEAN CELL VOLUME 86.5 fl (80-96); MEAN PLT VOLUME 8.1 fl (7.5-11.1); MONO % 7.3 % (3.8-10.2); NEUT % 50.4 % (42.8-82.8); PLATELET COUNT 408 10^3/uL (134-434); RBC 4.52 M/mm3 (3.60-5.2); RDW 13.2 % (11.6-15.6); WHITE BLOOD COUNT 11.1 K/mm3 (4.0-10.0)
[2024-08-18] MEDS ORDERED: VANCOMYCIN 1 GM PREMIX (F) 1 GM/200 ML BAG ONE (22:59)
[2024-08-18 23:01] LABS: INR 0.98 (0.83-1.09); PROTHROMBIN TIME (PATIENT) 10.7 SEC (9.7-13.0)
[2024-08-18] MEDS: SODIUM CHLORIDE 0.9% 500 ML INFUS.BAG IV ONE (23:19)
[2024-08-18] MEDS: VANCOMYCIN 1 GM PREMIX (F) 1 GM/200 ML BAG IVPB ONE (23:19)
[2024-08-18 23:28] LABS: POTASSIUM 3.8 mmol/L (3.5-5.1)
[2024-08-18 23:30] LABS: BLOOD UREA NITROGEN 13.8 mg/dL (7-18); CALCIUM 9.6 mg/dL (8.5-10.1)
[2024-08-18 23:31] LABS: ALBUMIN 3.8 g/dl (3.4-5.0)
[2024-08-18 23:33] LABS: CREATININE 0.7 mg/dL (0.55-1.3)
[2024-08-18 23:35] LABS: BILIRUBIN,TOTAL 0.2 mg/dL (0.2-1); TOT PROT 7.3 g/dl (6.4-8.2)
[2024-08-19] MEDS ORDERED: KETOROLAC TROMETHAMINE 15 MG/ML VIAL ONE (02:49)
[2024-08-19] MEDS: KETOROLAC TROMETHAMINE 15 MG/ML VIAL IVPUSH ONE (03:00)
[2024-08-19] MEDS ORDERED: morphine CARPU-JECT 2 MG/1 ML DISP.SYRIN IVPUSH PRN (03:40)
[2024-08-19] MEDS ORDERED: MORPHINE SULFATE 2 MG/ML SYRINGE IVPUSH PRN (03:48)
[2024-08-19 05:59] VITALS: BMI 25.9
[2024-08-19] MEDS: CEFTRIAXONE 2 GM-D5W BAG 2 GM/50 ML BAG IVPB SCH (09:27)
[2024-08-19] MEDS: INSULIN ASPART SLIDING SCALE (NOVOLOG) 1 VIAL SQ SCH (09:28)
[2024-08-19] MEDS: ACETAMINOPHEN 1000 MG/100 ML BAG IVPB PRN (20:26)
[2024-08-20] MEDS: HEPARIN NA (PORCINE) 5,000 UNITS/ML 1ML VIAL SQ SCH (00:40)
[2024-08-20] MEDS: PSYLLIUM 5.85 GM PACKET PO SCH (06:32)
[2024-08-20] MEDS: ACETAMINOPHEN 325 MG TABLET (FP) PO PRN (06:32)
[2024-08-20 09:54] LABS: BASO % 0.4 % (0-2.0); EOS % 1.1 % (0-4.5); HEMATOCRIT 37.3 % (32.4-45.2); HEMOGLOBIN 12.3 GM/dL (10.7-15.3); LYMPH % 34.3 % (8-40); MCH 28.8 pg (25.7-33.7); MCHC 33.1 g/dl (32.0-36.0); MEAN CELL VOLUME 87.1 fl (80-96); MEAN PLT VOLUME 8.5 fl (7.5-11.1); MONO % 6.2 % (3.8-10.2); PLATELET COUNT 388 10^3/uL (134-434); RBC 4.28 M/mm3 (3.60-5.2); RDW 13.1 % (11.6-15.6); WHITE BLOOD COUNT 9.1 K/mm3 (4.0-10.0)
[2024-08-20 10:15] LABS: POTASSIUM 3.7 mmol/L (3.5-5.1)
[2024-08-20 10:28] LABS: ALBUMIN 3.3 g/dl (3.4-5.0); CALCIUM 9.2 mg/dL (8.5-10.1); MAGNESIUM 2.1 mg/dL (1.8-2.4)
[2024-08-20 10:31] LABS: CREATININE 0.7 mg/dL (0.55-1.3)
[2024-08-20 10:32] LABS: BILIRUBIN,TOTAL 0.3 mg/dL (0.2-1); PHOSPHOROUS 3.9 mg/dL (2.5-4.9); TOT PROT 6.6 g/dl (6.4-8.2)
[2024-08-20] MEDS: POLYETHYLENE GLYCOL (HEALTHYLAX) 3350 17 GM PACKET PO ONE (14:12)
[2024-08-20 16:00] VITALS: BP 110/58; PULSE 63; RESP 18; TEMP 98.4
== END 2024-08-20 19:58 | disposition home or self-care (01) | DRG 395 ==
LOC: JER 20:35 → JERBED 08-19 02:21 → OBSVTOIN 08-19 03:40 → J8W 08-19 05:45
PROVIDERS: ADMIT Student in an Organized Health Care Education/Training Program; ATTEND Nurse Practitioner Family
DX: K62.89 Other specified diseases of anus and rectum (principal); I10 Essential (primary) hypertension; E78.5 Hyperlipidemia, unspecified; E11.9 Type 2 diabetes mellitus without complications; A49.9 Bacterial infection, unspecified
CPT/HCPCS: 36415; 74177-TC; 80053; 82962; 83036; 83605; 83735; 84100; 85025; 85610; 85730; 86850; 86900; 86901; 87040; 87070; 87076; 87081; 87186; 87205; 93005; 93010; 99285-25; G0378; J0131; J1644; Q9967

== ENCOUNTER 2024-11-23 10:13 | Emergency (ER) | payer OTHER ==
[2024-11-23 10:42] VITALS: BP 121/78; PULSE 68; RESP 19; TEMP 98.4; BMI 26.5
[2024-11-23] MEDS ORDERED: HYDROCORTISONE 1% TOPICAL OINT 30 GM TUBE TP PRN (11:49)
[2024-11-23] MEDS ORDERED: CLINDAMYCIN HCL 150 MG CAPSULE (FP) ONE (11:51)
[2024-11-23] MEDS: CLINDAMYCIN HCL 150 MG CAPSULE (FP) PO ONE (12:30)
== END 2024-11-23 12:31 | disposition home or self-care (01) ==
LOC: JER 10:13
DX: M54.2 Cervicalgia (principal); R21 Rash and other nonspecific skin eruption
CPT/HCPCS: 99283-25